=== PATIENT | female | born 2000 | race Hispanic/Latino ===

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

== ENCOUNTER 2023-02-04 07:10 | Emergency (ER) | payer MEDICAID ==
[~2023-02-04] VITALS: Ht 154.9 cm; Wt 86.2 kg
[2023-02-04 07:34] LABS: APPEARANCE,URINE CLEAR (CLEAR); BILIRUBIN,URINE NEGATIVE (NEGATIVE); COLOR,URINE LIGHT-YELLOW (YELLOW); GLUCOSE, URINE (UA) NEGATIVE (NEGATIVE); KETONES,URINE NEGATIVE (NEGATIVE); LEUKOCYTE ESTERASE ,URINE NEGATIVE Leu/uL (NEGATIVE); NITRATE,URINE NEGATIVE (NEGATIVE); OCCULT BLOOD,URINE NEGATIVE (NEGATIVE); PROTEIN,URINE NEGATIVE (NEGATIVE); UROBILINOGEN,URINE 0.2 mg/dL (0.2-1.0)
[2023-02-04 07:37] LABS: HCG,QUALITATIVE URINE NEGATIVE (NEGATIVE)
[2023-02-04 07:38] LABS: ADD UA MICROSCOPIC NO
[2023-02-04] MEDS ORDERED: KETOROLAC 60 MG VIAL (30MG/ML) IM ONE (10:00)
[2023-02-04] MEDS ORDERED: KETOROLAC 30MG VIAL (30MG/ML) ONE (10:35)
[2023-02-04] MEDS ORDERED: CYCLOBENZAPRINE HCL 10 MG TABLET PO ONE (11:30)
[2023-02-04] MEDS ORDERED: TRAMADOL HCL 50 MG TABLET PO ONE (13:30)
[2023-02-04] MEDS ORDERED: CYCL-309 PO (13:30)
[2023-02-04 13:42] VITALS: BP 118/65; PULSE 90; RESP 22; O2SAT 98
== END 2023-02-04 13:51 | disposition home or self-care (01) ==
LOC: EDH 07:10
DX: S39.012A Strain of muscle, fascia and tendon of lower back, initial encounter (principal); X58.XXXA Exposure to other specified factors, initial encounter; Y93.89 Activity, other specified; Y92.89 Other specified places as the place of occurrence of the external cause; Y99.8 Other external cause status
CPT/HCPCS: 99284; 81003; 81025; 72100; 96372; J1885 ×2